=== PATIENT | male | born 1945 | race Asian ===

== ENCOUNTER 2019-02-25 19:39 | Inpatient (IN) | payer OTHER, BC ==
[~2019-02-25] VITALS: Ht 160 cm; Wt 82.1 kg
[~2019-02-25 19:39] MED LIST: ALLO300T2 PO; AMI200 PO; APIX2.5T PO; ASPI-1153 PO; HYD500 PO; METO50TA7 PO; PRAV40TA PO; SYN50 PO
[2019-02-25 20:00] VITALS: BP_SYST 142
--- NOTE | 2019-02-25 20:08 | NUR ---
Pt biba to bed 6 for evaluation
--- NOTE | 2019-02-25 20:14 | NUR ---
Pt brought in by ambulance. Pt awake, alert, oriented x4. Pt states that he was feeling weak tonight before dinner. Pt states that he was feeling weak and dizzy for approx 1 week. Pt states that he had mechanical fall today because of weakness. Pt denies trauma of any kind. Pt states that he has pain to the back of his arms, due to a numbness or cramping sensation. Pt denies KO. Pt states that he has had x1 episode of vomiting since falling/stumbling episode. Pt denies chest pain, shortness of brath, diarrhea, persistent nausea. pt resting in ed bed, no acute distress. VSS.
[2019-02-25 21:09] LABS: BILIRUBIN,URINE NEGATIVE (NEGATIVE); BLOOD, URINE 1+ (NEGATIVE); CLARITY/URINE CLEAR (CLEAR); COLOR,URINE YELLOW (YELLOW); GLUCOSE,URINE NEGATIVE (NEGATIVE); KETONES,URINE TRACE (NEGATIVE); LEUKOCYTE ESTERASE ,URINE NEGATIVE (NEGATIVE); NITRITE, URINE NEGATIVE (NEGATIVE); PROTEIN URINE 2+ (NEGATIVE)
[2019-02-25 21:13] LABS: BASOPHILS % (AUTO) 0.7 % (0.0-2.0); EOSINOPHILS % (AUTO) 0.2 % (0.0-4.0); HEMATOCRIT 36.4 % (36-54); HEMOGLOBIN 12.6 g/dL (14.0-18.0); LYMPHOCYTES # (AUTO) 0.5 K/uL (1.0-5.5); LYMPHOCYTES % (AUTO) 14.5 % (20.5-51.5); MEAN CORPUSCULAR HEMOGLOBIN 40 pg (27-31); MEAN CORPUSCULAR HGB CONC 35 % (32-36); MEAN CORPUSCULAR VOLUME 116 fL (79.0-98.0); MONOCYTES # (AUTO) 0.6 K/uL (0.0-1.0); MONOCYTES % (AUTO) 19.6 % (1.7-9.3); NEUTROPHILS # (AUTO) 2.1 K/uL (1.8-7.7); PLATELET COUNT (AUTO) 261 K/uL (130-430); RED BLOOD CELL COUNT(AUTO) 3.12 MIL/uL (4.2-6.2); WHITE BLOOD COUNT (AUTO) 3.2 K/uL (4.8-10.8)
[2019-02-25 21:19] LABS: INR 1.1 (0.80-1.20); PROTHROMBIN TIME 11.2 SECS (9.5-12.5)
[2019-02-25 21:21] LABS: ANION GAP 4 (5-15); BARBITURATE, URINE NEGATIVE (NEG <=200); BENZODIAZEPINE, URINE NEGATIVE (NEG <=150); CALCIUM 8.2 mg/dL (8.4-11.0); CANNABINOID, URINE NEGATIVE (NEG <=50); CHLORIDE 95 mmol/L (98-107); COCAINE, URINE NEGATIVE (NEG <=150); CREATININE 1.07 mg/dL (0.55-1.30); GLUCOSE 195 mg/dL (70-99); METHAMPHETAMINES SCREEN,URINE NEGATIVE (NEG <=500); OPIATE, URINE NEGATIVE (NEG <=100); PHENCYCLIDINE SCREEN,URINE NEGATIVE (NEG <=25); POTASSIUM 3.7 mmol/L (3.5-5.1); SODIUM SERUM 131 mmol/L (136-145); UR TRICYCLIC ANTIDEPRESSANTS NEGATIVE (NEG <=300); UREA NITROGEN, BLOOD 20 mg/dL (8-21); URINE AMPHETAMINE NEGATIVE (NEG <=500); URINE METHADONE NEGATIVE (NEG <=200); URINE OXYCODONE SCREEN NEGATIVE (NEG <=100); URINE PROPOXYPHENE SCREEN NEGATIVE (NEG <=300)
[2019-02-25 21:27] LABS: BACTERIA,URINE FEW /HPF (None Seen); MUCUS,URINE None Seen /LPF (None Seen); WBC,URINE 0-3 /HPF (0-3)
[2019-02-25 21:35] LABS: ALANINE AMINOTRANSFERASE 20 U/L (12-78); ALBUMIN 3.3 g/dL (3.4-4.8); ASPARTATE AMINOTRANSFERASE 21 U/L (10-37); FREE T4 (FREE THYROXINE) 1.1 ng/dl (0.8-1.5); THYROID STIMULATING HORMONE 8.73 uIu/mL (0.36-3.74); TOTAL BILIRUBIN 0.4 mg/dL (0.0-1.0)
[2019-02-25 21:39] LABS: ALCOHOL, BLOOD < 3 mg/dL (<10)
[2019-02-25] MEDS ORDERED: OSELTAMIVIR PHOSPHATE 75 MG CAPSULE PO ONE (21:45)
[2019-02-25] MEDS ORDERED: cefTRIAXone 1 GM IVPB PREMIX 50 ML IV ONE (21:45)
[2019-02-25] MEDS ORDERED: AZITHROMYCIN 250 MG TABLET PO ONE (21:45)
--- NOTE | 2019-02-25 22:12 | NUR ---
ER at bedside examining patient.
[2019-02-25] MEDS ORDERED: ACETAMINOPHEN 500 MG TABLET PO ONE (22:30)
[2019-02-25] MEDS ORDERED: NACL 0.9% 1,000 ML IV ONE (22:30)
[2019-02-25] MEDS ORDERED: GLU500 PO (23:13)
[2019-02-25] MEDS ORDERED: METO25TA3 PO (23:15)
[2019-02-25] MEDS ORDERED: VALS1TAB74 PO (23:17)
[2019-02-25] MEDS ORDERED: AMIO100T4 PO (23:19)
[2019-02-25] MEDS ORDERED: APIX5TAB4 PO (23:20)
--- NOTE | 2019-02-25 23:20 | NUR ---
Medication reconciliation completed with information provided by patient. Any prior medication reconciliation on file was reviewed and corrected.
--- NOTE | 2019-02-26 00:20 | NUR ---
Patient will be admitted to care of . Admitted to Tele unit. Will go to room 101A. Belongings list completed. Complete and up to date summary report printed. SBAR report to be given at bedside with opportunity for questions.
--- NOTE | 2019-02-26 00:39 | NUR ---
Bed Changed to 125B
[2019-02-26] MEDS ORDERED: LORazepam 2 MG/ML VIAL IVP PRN (00:45)
[2019-02-26] MEDS ORDERED: HYDROcodone/ACETAMIN 10-325 MG TAB PO PRN (00:45)
[2019-02-26] MEDS ORDERED: HYDROcodone/ACETAMIN 5-325 MG TAB (NORCO/ VICODIN) PO PRN (00:45)
[2019-02-26] MEDS ORDERED: ONDANSETRON HCL 4 MG/2 ML VIAL IVP PRN (00:45)
--- NOTE | 2019-02-26 00:48 | NUR ---
Transfer to Tele via ACLS protocol. Licensed nurse present. IV present no signs or symptoms of infiltration.
--- NOTE | 2019-02-26 00:55 | NUR ---
ADMISSION: The patient, IRISH CURRY, 73 y/o, M admitted by JON OLMOS MD, was given written information regarding hospital policies, unit procedures and contact persons. Valuables were checked and DOCUMENTED.
--- NOTE | 2019-02-26 01:00 | NUR ---
INITIAL NOTES PATIENT IS LAYING IN BED AND STABLE. NO S/S OF RESPIRATORY DISTRESS NOTED. PATIENT SUCCESSFULLY DEMONSTRATES USAGE OF CALL LIGHT AT THIS TIME. PATIENT'S FAMILY IS BY BEDSIDE. PLAN OF CARE DISCUSSED WITH PATIENT AT THIS TIME. PATIENT REFUSED BED ALARM, DESPITE EDUCATIONAL EFFORT. WILL CONTINUE TO EDUCATE. BED IS LOCKED, AND AT THE LOWEST POSITION. FALL, SAFETY, ASPIRATION, RESPIRATORY, AND DROPLET PRECAUTIONS WILL BE PLACED THROUGHOUT THE SHIFT.
[2019-02-26 01:19] VITALS: BP_SYST 123
--- NOTE | 2019-02-26 02:08 | NUR ---
PAGED PAGED DR. JON OLMOS FOR ORDERS, SPOKE WITH JEFFREY
--- NOTE | 2019-02-26 02:41 | NUR ---
CONSULTATION PAGED/CALLED Reason for Consultation: PNA Person Who was Notified: PATRIZIA Consulting Physician: FRANCIS WORTHINGTON Ordering Physician: JON HUMMEL FAXED FACE SHEET TO DR. COWAN'S OFFICE [phone]
--- NOTE | 2019-02-26 03:00 | NUR ---
ROUNDING PATIENT FAMILY IS STILL BY BEDSIDE. PATIENT IS STABLE AND SLEEPING. NO S/S OF RESPIRATORY DISTRESS NOTED. CALL LIGHT IN REACH. BED IS LOCKED AND AT THE LOWEST POSITION. WILL CONTINUE TO MONITOR.
[2019-02-26] MEDS: D5/0.45 NS 1,000 ML IV SCH ×3 (03:46→20:54)
--- NOTE | 2019-02-26 06:00 | NUR ---
CLOSING NOTES PATIENT IS LAYING IN BED AND STABLE. NO S/S OF RESPIRATORY DISTRESS NOTED. CALL LIGHT IN REACH. BED IS LOCKED AND AT THE LOWEST POSITION. FALL, ASPIRATION, DROPLET, RESPIRATORY, AND SAFETY PRECAUTIONS HAS BEEN PLACED THROUGHOUT THE SHIFT. WILL CONTINUE TO MONITOR UNTIL REPORT IS GIVEN TO AM NURSE BY BEDSIDE.
[2019-02-26] MEDS: LEVOTHYROXINE SODIUM 0.05 MG TABLET PO SCH (06:33)
[2019-02-26] MEDS: INSULIN REGULAR, HUMAN 100 UNITS/ML, 10 ML VIAL (humuLIN R) SUBCUT PRN ×3 (06:38→21:09)
--- NOTE | 2019-02-26 07:22 | NUR ---
INITIAL NOTE PT RESTING IN BED, NO ACUTE DISTRESS NOTED, BREATHING EVEN AND UNLABORED. IVF INFUSING WELL. CALL LIGHT WITHIN REACH, BED IN LOW AND LOCKED POSITION WITH BED ALARM ON.
[2019-02-26] MEDS ORDERED: FLU VACC TS2019(65UP)/MF59C/PF 45 MCG/0.5 ML SYRINGE I.M. PRN (07:45)
[2019-02-26 08:00] VITALS: BP_SYST 129
--- NOTE | 2019-02-26 09:30 | NUR ---
RN ROUNDS PT SITTING UP AT EDGE OF BED EATING BREAKFAST. MORNING MEDICATIONS ADMINISTERED. PT DENIES ANY SOB, OR DIZZINESS. AT BEDSIDE.
[2019-02-26] MEDS: HYDROXYUREA 500 MG CAPSULE (HYDREA) PO SCH (09:31)
[2019-02-26] MEDS: LOSARTAN POTASSIUM 50 MG TABLET (COZAAR) PO SCH (09:31)
[2019-02-26] MEDS: ASPIRIN 81 MG TABLET(ECOTRIN) PO SCH (09:32)
[2019-02-26] MEDS: ATORVASTATIN 10 MG TABLET PO SCH (09:32)
[2019-02-26] MEDS: HYDROCHLOROTHIAZIDE 12.5 MG CAPSULE (HCTZ) PO SCH (09:32)
[2019-02-26] MEDS: metFORMIN HCL 500 MG TABLET PO SCH ×2 (09:32→17:23)
[2019-02-26] MEDS: AMIODARONE HCL 200 MG TABLET PO SCH (09:33)
[2019-02-26] MEDS: ALLOPURINOL 300 MG TABLET (ZYLOPRIM) PO SCH (09:33)
[2019-02-26] MEDS: METOPROLOL SUCCINATE 25 MG TAB.SR.24H (TOPROL XL) PO SCH ×2 (09:33→21:02)
[2019-02-26] MEDS: OSELTAMIVIR PHOSPHATE 75 MG CAPSULE PO SCH ×2 (09:33→21:01)
[2019-02-26] MEDS: APIXABAN 2.5 MG TABLET PO SCH ×2 (09:34→21:04)
--- NOTE | 2019-02-26 11:30 | NUR ---
BSG 217 EDUCATED PT ON USES AND SIDE EFFECTS OF INSULIN COVERAGE. PT VERBALIZED UNDERSTANDING. 4 UNITS OF INSULIN ADMINISTERED. PT TOLERATED WELL. PT DENIES ANY SOB, DIZZ, OR COUGH.
[2019-02-26 12:00] VITALS: BP_SYST 142
--- NOTE | 2019-02-26 13:35 | NUR ---
RN ROUNDS PT RESTING IN BED, NO ACUTE DISTRESS NOTED, BREATHING EVEN AND UNLABORED. AT BEDSIDE.
[2019-02-26] MEDS: ACETAMINOPHEN 325 MG TABLET PO PRN (14:35)
--- NOTE | 2019-02-26 14:45 | NUR ---
Vaishali HUMMEL MD AT BEDSIDE EXAMINING PT.
--- NOTE | 2019-02-26 15:43 | NUR ---
RN ROUNDS PT SITTING UP IN BED. DENIES ANY SOB, DIZZINESS, OR FEVER. WILL CONTINUE TO MONITOR.
[2019-02-26 16:00] VITALS: BP_SYST 140
--- NOTE | 2019-02-26 17:40 | NUR ---
RN ROUNDS PT SITTING AT EDGE OF BED. DENIES ANY SOB, DIZZINESS, OR FEVER. SCHEDULED MEDICATIONS ADMINISTERED. FLU VACCINE ADMINISTERED. PT TOLERATED WELL.
[2019-02-26 18:02] VITALS: BP_SYST 140
--- NOTE | 2019-02-26 18:29 | NUR ---
CLOSING NOTE PT AWAKE, RESTING IN BED, DENIES ANY SOB, FEVER OR DIZZINESS. IV FLUIDS INFUSING WELL. CALL LIGHT WITHIN REACH, BED IN LOW AND LOCKED POSITION WITH BED ALARM ON. DROPLET PRECAUTIONS IN PLACE. ALL NEEDS ME THROUGHOUT SHIFT. WILL CONTINUE TO MONITOR UNTIL PT CARE IS ENDORSED TO WATER SERVICE DISPATCHER RN.
[2019-02-26 20:00] VITALS: BP_SYST 148
--- NOTE | 2019-02-26 20:00 | NUR ---
Late Entry due to patient care: Pt is fully AAO x4. No c/o pain or discomfort and no acute distress noted. Skin is warm and dry to touch. No signs or symptoms of hypoglycemia or hyperglycemia noted. IVF is infusing well in [facility]. Fall and safety precautions are in place.
[2019-02-26] MEDS: cefTRIAXone 1 GM IVPB PREMIX 50 ML IV SCH (21:03)
--- NOTE | 2019-02-26 21:09 | NUR ---
Accucheck 161 and 2 units Regular Insulin given SQ. Skin remains warm and dry to touch. Pt ate 1/2 [place] sandwich and drank 1 cup apple juice for HS snacks. IVF is infusing well in [facility]. Fall and safety precautions are in place.
--- NOTE | 2019-02-26 23:35 | NUR ---
CPAP connected to patient by RT. No respiratory distress noted. Fall and safety precautions are in place.
[2019-02-26] MEDS: AZITHROMYCIN 500 MG in NS 250 ML IV SCH (23:44)
[2019-02-27] VITALS: BP_SYST 145
--- NOTE | 2019-02-27 01:15 | NUR ---
Pt is sleeping comfortably in bed and tolerating CPAP's settings well. No respiratory distress noted. IVF is infusing well in LAC. Fall and safety precautions are in place.
--- NOTE | 2019-02-27 02:00 | NUR ---
Pt is sleeping without any distress noted. IVF is infusing well in [facility]. Fall and safety precautions are in place.
--- NOTE | 2019-02-27 04:00 | NUR ---
Pt is sleeping without any distress noted. IVF is infusing well in [facility]. Fall and safety precautions are in place.
--- NOTE | 2019-02-27 06:30 | NUR ---
PT IS AWAKE AND RESTING QUIETLY IN BED. ALL PT'S NEEDS WERE ATTENDED TO. WILL ENDORSE TO DAY SHIFT NURSE.
[2019-02-27 06:33] LABS: ANION GAP 7 (5-15); CALCIUM 7.6 mg/dL (8.4-11.0); CHLORIDE 100 mmol/L (98-107); CREATININE 0.99 mg/dL (0.55-1.30); GLUCOSE 151 mg/dL (70-99); POTASSIUM 3.6 mmol/L (3.5-5.1); SODIUM SERUM 135 mmol/L (136-145); UREA NITROGEN, BLOOD 15 mg/dL (8-21)
[2019-02-27] MEDS: LEVOTHYROXINE SODIUM 0.05 MG TABLET PO SCH (06:40)
[2019-02-27] MEDS: INSULIN REGULAR, HUMAN 100 UNITS/ML, 10 ML VIAL (humuLIN R) SUBCUT PRN ×4 (06:44→21:31)
[2019-02-27 06:57] LABS: BASOPHILS % (AUTO) 0.4 % (0.0-2.0); EOSINOPHILS % (AUTO) 0.4 % (0.0-4.0); HEMATOCRIT 33.9 % (36-54); HEMOGLOBIN 11.5 g/dL (14.0-18.0); LYMPHOCYTES # (AUTO) 1.4 K/uL (1.0-5.5); LYMPHOCYTES % (AUTO) 40.3 % (20.5-51.5); MEAN CORPUSCULAR HEMOGLOBIN 40 pg (27-31); MEAN CORPUSCULAR HGB CONC 34 % (32-36); MEAN CORPUSCULAR VOLUME 118 fL (79.0-98.0); MONOCYTES # (AUTO) 0.8 K/uL (0.0-1.0); MONOCYTES % (AUTO) 22.6 % (1.7-9.3); NEUTROPHILS # (AUTO) 1.3 K/uL (1.8-7.7); NEUTROPHILS % (AUTO) 36.3 % (40.0-70.0); PLATELET COUNT (AUTO) 209 K/uL (130-430); RED BLOOD CELL COUNT(AUTO) 2.87 MIL/uL (4.2-6.2); RED CELL DISTRIBUTION WIDTH 15.3 % (9.0-15.0); WHITE BLOOD COUNT (AUTO) 3.5 K/uL (4.8-10.8)
[2019-02-27 08:22] VITALS: BP_SYST 131
[2019-02-27 09:45] LABS: ERYTHROCYTE SEDIMENTATION RATE 57 MM/HR (0-15)
[2019-02-27] MEDS: ACETAMINOPHEN 325 MG TABLET PO PRN (09:54)
[2019-02-27] MEDS: ATORVASTATIN 10 MG TABLET PO SCH (09:56)
[2019-02-27] MEDS: ALLOPURINOL 300 MG TABLET (ZYLOPRIM) PO SCH (09:56)
[2019-02-27] MEDS: OSELTAMIVIR PHOSPHATE 75 MG CAPSULE PO SCH ×2 (09:56→21:27)
[2019-02-27] MEDS: HYDROCHLOROTHIAZIDE 12.5 MG CAPSULE (HCTZ) PO SCH (09:56)
[2019-02-27] MEDS: ASPIRIN 81 MG TABLET(ECOTRIN) PO SCH (09:56)
[2019-02-27] MEDS: metFORMIN HCL 500 MG TABLET PO SCH ×2 (09:56→17:40)
[2019-02-27] MEDS: HYDROXYUREA 500 MG CAPSULE (HYDREA) PO SCH (09:56)
[2019-02-27] MEDS: METOPROLOL SUCCINATE 25 MG TAB.SR.24H (TOPROL XL) PO SCH ×2 (10:12→21:28)
[2019-02-27] MEDS: APIXABAN 2.5 MG TABLET PO SCH ×2 (10:13→21:32)
[2019-02-27] MEDS: LOSARTAN POTASSIUM 50 MG TABLET (COZAAR) PO SCH (10:36)
[2019-02-27] MEDS: D5/0.45 NS 1,000 ML IV SCH ×2 (10:40→17:44)
[2019-02-27] MEDS ORDERED: GLUCOSE 15 GM GEL (in 37.5 GM TUBE) PO PRN (11:15)
[2019-02-27] MEDS ORDERED: D5W 1,000 ML IV PRN (11:15)
[2019-02-27] MEDS ORDERED: DEXTROSE 50%-WATER 50 ML DISP.SYRIN IVP PRN (11:15)
[2019-02-27 14:03] VITALS: BP_SYST 131
--- NOTE | 2019-02-27 14:08 | NUR ---
Encouraged patient to place bipap during nap as oxygen saturation on room air is 86%. Patient refused. Will monitor. Satnam Guillen RN
--- NOTE | 2019-02-27 19:30 | NUR ---
Pt was received lying in bed fully AAO x4. No c/o pain or discomfort and no acute distress noted. Skin is warm and dry to touch. No signs or symptoms of hypoglycemia or hyperglycemia noted. IVF of D5 1/2NS is infusing well in LAC at 100ml/hr without any signs of infiltration. Pt's is visiting at the bedside. Fall and safety precautions are in place.
[2019-02-27 20:00] VITALS: BP_SYST 142
--- NOTE | 2019-02-27 21:31 | NUR ---
Accucheck 185 and 2 units Regular Insulin given SQ. Skin remains warm and dry to touch. Pt declined HS snacks. Pt stated he has salad and fruit cup at bedside to eat later if he feels hungry. IVF is infusing well in [facility]. Fall and safety precautions are in place.
[2019-02-27] MEDS: cefTRIAXone 1 GM IVPB PREMIX 50 ML IV SCH (21:35)
[2019-02-27] MEDS: AZITHROMYCIN 500 MG in NS 250 ML IV SCH (22:42)
--- NOTE | 2019-02-27 23:20 | NUR ---
Pt was placed on BIPAP by RT. IVF is infusing well in [facility]. Fall and safety precautions are in place.
[2019-02-28] VITALS: BP_SYST 142
--- NOTE | 2019-02-28 01:00 | NUR ---
Pt is sleeping with BIPAP on. No respiratory distress noted. IVF is infusing well in LAC. Fall and safety precautions are in place.
[2019-02-28] MEDS: D5/0.45 NS 1,000 ML IV SCH ×2 (02:40→06:47)
--- NOTE | 2019-02-28 03:35 | NUR ---
Pt was seen by RT per pt's request. Pt having difficulty sleeping with the BIPAP on. Pt appears uncomfortable with the BIPAP's mask. Pt's is at the bedside. Fall and safety precautions are in place.
--- NOTE | 2019-02-28 04:14 | NUR ---
BIPAP's adjustment done by RT.
[2019-02-28] MEDS: LEVOTHYROXINE SODIUM 0.05 MG TABLET PO SCH (06:42)
--- NOTE | 2019-02-28 06:45 | NUR ---
PT IS AWAKE AND RESTING QUIETLY IN BED. IS AT THE BEDSIDE. ACCUCHECK 150 AND NO INSULIN COVERAGE NOTED. SKIN REMAINS WARM AND DRY TO TOUCH. ALL PT'S NEEDS WERE ATTENDED TO. WILL ENDORSE TO DAY SHIFT NURSE.
--- NOTE | 2019-02-28 07:20 | NUR ---
Opening Note received bedside SBAR report from shift stacker RN, patient resting in bed, respirations even and unlabored on room air, no acute distress noted, patient denies any pain, educated patient on use of call light and asked to call for assistance, patient verbalized understanding, call light in reach, educated patient on use of bed alarm for patient safety, patient refusing bed alarm, bed in low and locked position, isolation precautions in place.
[2019-02-28 08:00] VITALS: BP_SYST 155
[2019-02-28] MEDS: metFORMIN HCL 500 MG TABLET PO SCH ×2 (08:35→17:15)
[2019-02-28] MEDS: AMIODARONE HCL 200 MG TABLET PO SCH (08:35)
[2019-02-28] MEDS: LOSARTAN POTASSIUM 50 MG TABLET (COZAAR) PO SCH (08:35)
[2019-02-28] MEDS: HYDROXYUREA 500 MG CAPSULE (HYDREA) PO SCH (08:35)
[2019-02-28] MEDS: OSELTAMIVIR PHOSPHATE 75 MG CAPSULE PO SCH ×2 (08:36→20:26)
[2019-02-28] MEDS: ALLOPURINOL 300 MG TABLET (ZYLOPRIM) PO SCH (08:37)
[2019-02-28] MEDS: HYDROCHLOROTHIAZIDE 12.5 MG CAPSULE (HCTZ) PO SCH (08:37)
[2019-02-28] MEDS: APIXABAN 2.5 MG TABLET PO SCH ×2 (08:37→20:27)
[2019-02-28] MEDS: ATORVASTATIN 10 MG TABLET PO SCH (08:37)
[2019-02-28] MEDS: ASPIRIN 81 MG TABLET(ECOTRIN) PO SCH (08:38)
[2019-02-28] MEDS: METOPROLOL SUCCINATE 25 MG TAB.SR.24H (TOPROL XL) PO SCH ×2 (08:38→20:26)
--- NOTE | 2019-02-28 09:24 | NUR ---
RN Rounds patient resting in bed, respirations even and unlabored on room air, no acute distress noted.
--- NOTE | 2019-02-28 11:30 | NUR ---
RN Rounds patient resting in bed, respirations even and unlabored, patient denies any pain, IV fluid infusing well, no redness or swelling noted to IV site, patients at bedside.
[2019-02-28] MEDS: INSULIN REGULAR, HUMAN 100 UNITS/ML, 10 ML VIAL (humuLIN R) SUBCUT PRN ×3 (11:53→20:32)
[2019-02-28 12:37] VITALS: BP_SYST 152
--- NOTE | 2019-02-28 13:59 | NUR ---
RN Rounds patient resting in bed, respirations even and unlabored on room air, patient denies any pain, no acute distress noted, patients at bedside.
--- NOTE | 2019-02-28 15:27 | NUR ---
RN Rounds patient resting in bed, respirations even and unlabored on room air, patient denies any pain, no acute distress noted, patients at bedside.
--- NOTE | 2019-02-28 16:58 | NUR ---
Shipfitter Apprentice: met with pt. to conduct a DCPA. ANTHROPOLOGY DEPARTMENT CHAIR met with pt and . They assisted in answering questions. Pt. and stated pt needs a shower seat and a toilet seat as he is unsteady and fell in the garage prior to being hospitalized. He feels unsteady. Pt. denied feeling suicidal denied any MH issues. Pt stated he had a poor apetite, but his interjected stating it was due to his Dx of pneumonia. He is better and now wants to be D/C mary, but he stated he did not have time to speak to Dr. as he leaves the pts room just as soon as he arrives. ANTHROPOLOGY DEPARTMENT CHAIR suggested he have questions ready for the Dr. and writes them down. Then when the Dr. comes to examine him, just let him know that he wants to go over some questions. ANTHROPOLOGY DEPARTMENT CHAIR will remain available as needed.
--- NOTE | 2019-02-28 17:17 | NUR ---
Physician Rounds Dr. Molly Sabillon at bedside examining patient and speaking with patient and patients .
--- NOTE | 2019-02-28 17:36 | NUR ---
CONSULT CARDIOLOGY HYPERTENSION LATOYA WALKER [phone] S/W AJIT EXCHANGE
[2019-02-28 17:46] VITALS: BP_SYST 129
--- NOTE | 2019-02-28 19:20 | NUR ---
Closing Note bedside SBAR report given to receiving RN, patient resting in bed, respirations even and unlabored on room air, no acute distress noted, educated patient on use of call light and asked to call for assistance, patient verbalized understanding, call light in reach, educated patient on use of bed alarm for patient safety, patient refusing bed alarm, bed in low and locked position, care endorsed to factory lay out engineer RN.
--- NOTE | 2019-02-28 19:49 | NUR ---
Opening Note Received report from day shift RN, patient is sitting up in bed, no signs of acute distress at this time, patient is awake, A&Ox4, even and unlabored breathing on room air, IV to left AC forearm 18g is saline locked, no complaints of pain at this time, bed alarm not on, educated patient regarding bed alarm, patient verbalized understanding, patient verbalized he will use his call light for assistance out of bed, bed locked and in lowest position, two side rails up, safety and fall precautions in place, call light with patient, will continue plan of care.
[2019-02-28 20:00] VITALS: BP_SYST 126
[2019-02-28] MEDS: cefTRIAXone 1 GM IVPB PREMIX 50 ML IV SCH (20:21)
--- NOTE | 2019-02-28 20:32 | NUR ---
YE=343 Patient's blood sugar is 155, regular insulin 2 units SubQ indicated per sliding scale, educated patient on medication uses and potential side effects, patient verbalized understanding, administered medication per MD order, patient tolerated well, safety and fall precautions in place, bed locked and in lowest position, call light with patient, will continue to monitor.
[2019-02-28] MEDS: AZITHROMYCIN 500 MG in NS 250 ML IV SCH (22:01)
[2019-02-28] MEDS: NORMAL SALINE 5 ML DISP.SYRIN IVF SCH (22:02)
--- NOTE | 2019-02-28 22:02 | NUR ---
RN Rounds Patient is resting in bed, tolerating room air, no signs of acute distress at this time, IV site flushed, patent/benign, no complaints of pain at this time, safety and fall precautions in place, bed alarm not on, reeducated patient regarding bed alarm, patient verbalized understanding, patient verbalized he will use his call light for assistance, bed locked and in lowest position, , call light with patient, will continue to monitor.
[2019-03-01] VITALS: BP_SYST 142
--- NOTE | 2019-03-01 02:30 | NUR ---
RN Rounds Patient is resting in bed, tolerating CPAP machine 15% FiO2 21%, family at bedside, no signs of acute distress, IV is saline locked, safety and fall precautions in place, bed locked and in lowest position, two side rails up, call light with patient, will continue to monitor.
--- NOTE | 2019-03-01 04:02 | NUR ---
RN Rounds Patient is resting in bed, eyes closed, patient is tolerating CPAP machine 15%, FiO2 21%, family at bedside, no signs of acute distress at this time, IV is saline locked, safety and fall precautions in place, droplet isolation precautions in place, bed locked and in lowest position, two side rails up, call light with patient, will continue to monitor.
[2019-03-01] MEDS: NORMAL SALINE 5 ML DISP.SYRIN IVF SCH ×3 (06:15→21:43)
[2019-03-01] MEDS: LEVOTHYROXINE SODIUM 0.05 MG TABLET PO SCH (06:15)
--- NOTE | 2019-03-01 06:15 | NUR ---
RN Rounds Patient resting in bed, tolerating CPAP, family member at bedside, no signs of acute distress, assessed blood sugar, no coverage needed per sliding scale, IV site is saline locked, patent/benign, safety and fall precautions in place, droplet isolation precaution in place, bed locked and in lowest position, bed alarm not on, reeducated patient, patient verbalized understanding, two side rails up, call light with patient, will continue to monitor.
[2019-03-01 06:17] LABS: HEMATOCRIT 35.5 % (36-54); MEAN CORPUSCULAR HEMOGLOBIN 40 pg (27-31); MEAN CORPUSCULAR HGB CONC 34 % (32-36); MEAN CORPUSCULAR VOLUME 119 fL (79.0-98.0); PLATELET COUNT (AUTO) 211 K/uL (130-430); RED BLOOD CELL COUNT(AUTO) 2.99 MIL/uL (4.2-6.2); RED CELL DISTRIBUTION WIDTH 15.4 % (9.0-15.0); WHITE BLOOD COUNT (AUTO) 3.1 K/uL (4.8-10.8)
[2019-03-01 06:26] LABS: ANION GAP 3 (5-15); CALCIUM 8.1 mg/dL (8.4-11.0); CHLORIDE 99 mmol/L (98-107); CREATININE 0.93 mg/dL (0.55-1.30); GLUCOSE 112 mg/dL (70-99); POTASSIUM 3.7 mmol/L (3.5-5.1); SODIUM SERUM 138 mmol/L (136-145); UREA NITROGEN, BLOOD 12 mg/dL (8-21)
--- NOTE | 2019-03-01 06:30 | NUR ---
PT IS AWAKE AND RESTING QUIETLY IN BED. ALL PT'S NEEDS WERE ATTENDED TO. WILL ENDORSE TO DAY SHIFT NURSE. Addendum: 03/02/19 at 2116 by Ratna Galicia RN WRONG ENTRY. PLEASE DISREGARD.
--- NOTE | 2019-03-01 06:36 | NUR ---
Closing Note Patient is resting in bed, no signs of acute distress at this time, family member at bedside, tolerating CPAP 15%, FiO2 21%, IV to left AC forearm 18g is saline locked, patent/benign, no complaints of pain at this time, bed alarm not on, reeducated patient regarding bed alarm, patient verbalized understanding, bed locked and in lowest position, two side rails up, safety and fall precautions in place, droplet isolation precautions in place, call light with patient, will endorse care to dayshift RN.
[2019-03-01 07:30] LABS: C-REACTIVE PROTEIN QUANT < 0.2 mg/dL (0-0.5)
--- NOTE | 2019-03-01 07:35 | NUR ---
Opening Note received bedside SBAR report from family assistant RN, patient resting in bed, respirations even and unlabored, no acute distress noted, patients at bedside, educated patient on use of call light and asked to call for assistance, patient verbalized understanding, call light in reach, educated patient on use of bed alarm for patient safety, patient refusing bed alarm, bed in low and locked position, isolation precautions in place.
[2019-03-01 08:00] VITALS: BP_SYST 138
[2019-03-01 08:36] LABS: ERYTHROCYTE SEDIMENTATION RATE 62 MM/HR (0-15)
[2019-03-01] MEDS: metFORMIN HCL 500 MG TABLET PO SCH ×2 (09:08→17:01)
[2019-03-01] MEDS: APIXABAN 2.5 MG TABLET PO SCH ×2 (09:09→21:37)
[2019-03-01] MEDS: ATORVASTATIN 10 MG TABLET PO SCH (09:11)
[2019-03-01] MEDS: OSELTAMIVIR PHOSPHATE 75 MG CAPSULE PO SCH ×2 (09:11→21:36)
[2019-03-01] MEDS: HYDROXYUREA 500 MG CAPSULE (HYDREA) PO SCH (09:11)
[2019-03-01] MEDS: ASPIRIN 81 MG TABLET(ECOTRIN) PO SCH (09:12)
[2019-03-01] MEDS: ALLOPURINOL 300 MG TABLET (ZYLOPRIM) PO SCH (09:12)
[2019-03-01] MEDS: METOPROLOL SUCCINATE 25 MG TAB.SR.24H (TOPROL XL) PO SCH ×2 (09:17→21:37)
[2019-03-01] MEDS: HYDROCHLOROTHIAZIDE 12.5 MG CAPSULE (HCTZ) PO SCH (09:17)
[2019-03-01] MEDS: LOSARTAN POTASSIUM 50 MG TABLET (COZAAR) PO SCH (09:18)
--- NOTE | 2019-03-01 09:41 | NUR ---
RN Rounds patient sitting up in bed eating breakfast, tolerating well, patient denies any pain or nausea, patients at bedside.
[2019-03-01 10:55] LABS: BASOPHILS % (MANUAL) 0 % (0-2); EOSINOPHILS % (MANUAL) 2 % (0-7); LYMPHOCYTES % (MANUAL) 56 % (20-46); MONOCYTES % (MANUAL) 23 % (0-11)
[2019-03-01] MEDS: INSULIN REGULAR, HUMAN 100 UNITS/ML, 10 ML VIAL (humuLIN R) SUBCUT PRN ×3 (11:46→22:30)
--- NOTE | 2019-03-01 11:54 | NUR ---
RN Rounds patient resting in bed, patient denies any pain, no acute distress noted, patients at bedside.
[2019-03-01 13:31] VITALS: BP_SYST 120
--- NOTE | 2019-03-01 14:10 | NUR ---
RN Rounds patient resting in bed, respirations even and unlabored on room air, no acute distress noted, patient denies any pain, patients at bedside.
--- NOTE | 2019-03-01 15:18 | NUR ---
DC PLANNING CALLED SPOKE WITH DR JON OLMOS TO DISCUSS DC PLAN. PER DR OLMOS AWAITING CARDIO CONSULT FOR HTN AND PATIENT AND CM CAN ANTICIPATE DC HOME TOMORROW 5 DAYS OF ISOLATION WILL BE REACHED.
--- NOTE | 2019-03-01 16:55 | NUR ---
RN Rounds patient resting in bed, respirations even and unlabored on room air, patient denies any pain at this time, patients at bedside.
[2019-03-01 17:16] VITALS: BP_SYST 110
--- NOTE | 2019-03-01 19:15 | NUR ---
Closing Note bedside SBAR report given to receiving RN, patient resting in bed, respirations even and unlabored on room air, no acute distress noted, educated patient on use of call light and asked to call for assistance, patient verbalized understanding, call light in reach, educated patient on use of bed alarm for patient safety, patient refusing bed alarm, bed in low and locked position, care endorsed to devulcanizer operator RN.
[2019-03-01 20:00] VITALS: BP_SYST 134
[2019-03-01] MEDS: cefTRIAXone 1 GM IVPB PREMIX 50 ML IV SCH (21:38)
[2019-03-01] MEDS: AZITHROMYCIN 500 MG in NS 250 ML IV SCH (21:42)
[2019-03-02] VITALS: BP_SYST 143
--- NOTE | 2019-03-02 00:31 | NUR ---
FOLLOWED UP CONSULT: I CALLED DR. CAMRYN BLANCO TO FOLLOWED UP CONSULT I SPOKE WITH MIC ZUNIGA CONSULT WAS CALLED ON 02/28/2019 UNTIL NOW HAS NOT COME TO SEE PATIENT YET
[2019-03-02 04:00] VITALS: BP_SYST 139
[2019-03-02] MEDS: NORMAL SALINE 5 ML DISP.SYRIN IVF SCH ×3 (05:45→21:16)
[2019-03-02] MEDS: LEVOTHYROXINE SODIUM 0.05 MG TABLET PO SCH (06:29)
[2019-03-02 08:00] VITALS: BP_SYST 123
[2019-03-02 09:18] LABS: ANION GAP 0 (5-15); CALCIUM 8.6 mg/dL (8.4-11.0); CHLORIDE 98 mmol/L (98-107); GLUCOSE 117 mg/dL (70-99); POTASSIUM 3.7 mmol/L (3.5-5.1); SODIUM SERUM 133 mmol/L (136-145); UREA NITROGEN, BLOOD 15 mg/dL (8-21)
[2019-03-02 09:23] LABS: C-REACTIVE PROTEIN QUANT < 0.2 mg/dL (0-0.5)
[2019-03-02 10:05] LABS: ERYTHROCYTE SEDIMENTATION RATE 63 MM/HR (0-15)
[2019-03-02 10:55] LABS: HEMATOCRIT 38.4 % (36-54); RED BLOOD CELL COUNT(AUTO) 3.26 MIL/uL (4.2-6.2)
[2019-03-02 10:56] LABS: BASOPHILS % (AUTO) 0.5 % (0.0-2.0); LYMPHOCYTES % (AUTO) 60.5 % (20.5-51.5); MEAN CORPUSCULAR HEMOGLOBIN 40 pg (27-31); MEAN CORPUSCULAR HGB CONC 34 % (32-36); MEAN CORPUSCULAR VOLUME 118 fL (79.0-98.0); MONOCYTES % (AUTO) 19.6 % (1.7-9.3); NEUTROPHILS # (AUTO) 0.5 K/uL (1.8-7.7); NEUTROPHILS % (AUTO) 18.4 % (40.0-70.0); PLATELET COUNT (AUTO) 224 K/uL (130-430)
[2019-03-02 10:57] LABS: LYMPHOCYTES # (AUTO) 1.6 K/uL (1.0-5.5); MONOCYTES # (AUTO) 0.5 K/uL (0.0-1.0)
[2019-03-02 10:58] LABS: WHITE BLOOD COUNT (AUTO) 2.6 K/uL (4.8-10.8)
[2019-03-02] MEDS: ASPIRIN 81 MG TABLET(ECOTRIN) PO SCH (12:33)
[2019-03-02] MEDS: metFORMIN HCL 500 MG TABLET PO SCH ×2 (12:33→17:37)
[2019-03-02] MEDS: ATORVASTATIN 10 MG TABLET PO SCH (12:34)
[2019-03-02] MEDS: OSELTAMIVIR PHOSPHATE 75 MG CAPSULE PO SCH ×2 (12:34→21:00)
[2019-03-02] MEDS: METOPROLOL SUCCINATE 25 MG TAB.SR.24H (TOPROL XL) PO SCH ×2 (12:34→21:01)
[2019-03-02] MEDS: HYDROXYUREA 500 MG CAPSULE (HYDREA) PO SCH (12:34)
[2019-03-02] MEDS: HYDROCHLOROTHIAZIDE 12.5 MG CAPSULE (HCTZ) PO SCH (12:35)
[2019-03-02] MEDS: ALLOPURINOL 300 MG TABLET (ZYLOPRIM) PO SCH (12:36)
[2019-03-02] MEDS: LOSARTAN POTASSIUM 50 MG TABLET (COZAAR) PO SCH (12:37)
[2019-03-02] MEDS: APIXABAN 2.5 MG TABLET PO SCH ×2 (12:39→20:59)
[2019-03-02] MEDS: AMIODARONE HCL 200 MG TABLET PO SCH (12:44)
[2019-03-02] MEDS: INSULIN REGULAR, HUMAN 100 UNITS/ML, 10 ML VIAL (humuLIN R) SUBCUT PRN ×2 (13:06→21:35)
--- NOTE | 2019-03-02 13:26 | NUR ---
Dietitian Recommendations *Recommend [facility] Cardiac diet. Please see Nutritional Assessment for details. RUSH, BRANNON
[2019-03-02 20:00] VITALS: BP_SYST 133
[2019-03-02] MEDS: cefTRIAXone 1 GM IVPB PREMIX 50 ML IV SCH (20:58)
[2019-03-02] MEDS: AZITHROMYCIN 500 MG in NS 250 ML IV SCH (21:02)
[2019-03-03] VITALS: BP_SYST 133
--- NOTE | 2019-03-03 00:30 | NUR ---
ASLEEP.VITAL SIGNS NOT TAKEN.
--- NOTE | 2019-03-03 01:15 | NUR ---
DR PIÑA,FRANCIS IN AND ASKED PHOENIXUY THE MESSAGE LEFT FOR HIM FOR THE ATRIAL FIB AND HPN. NOT ME WHO CALLED HIM BUT SAID THAT THE PATIENT IS FOR DISCHARGE IN AM IN HIS CARE, WILL FOLLOW UP WITH THE ONE WHO CALLED FOR ATRIAL FIB AND HYPERTENSION IN AM.
[2019-03-03] MEDS: NORMAL SALINE 5 ML DISP.SYRIN IVF SCH ×2 (05:30→15:51)
[2019-03-03 06:34] LABS: BASOPHILS % (AUTO) 0.5 % (0.0-2.0); EOSINOPHILS % (AUTO) 0.9 % (0.0-4.0); HEMATOCRIT 35.9 % (36-54); HEMOGLOBIN 12.1 g/dL (14.0-18.0); LYMPHOCYTES # (AUTO) 1.8 K/uL (1.0-5.5); LYMPHOCYTES % (AUTO) 57.2 % (20.5-51.5); MEAN CORPUSCULAR HEMOGLOBIN 40 pg (27-31); MEAN CORPUSCULAR HGB CONC 34 % (32-36); MEAN CORPUSCULAR VOLUME 119 fL (79.0-98.0); MONOCYTES # (AUTO) 0.6 K/uL (0.0-1.0); MONOCYTES % (AUTO) 18.9 % (1.7-9.3); PLATELET COUNT (AUTO) 225 K/uL (130-430); RED BLOOD CELL COUNT(AUTO) 3.03 MIL/uL (4.2-6.2); RED CELL DISTRIBUTION WIDTH 16.1 % (9.0-15.0); WHITE BLOOD COUNT (AUTO) 3.2 K/uL (4.8-10.8)
[2019-03-03] MEDS: LEVOTHYROXINE SODIUM 0.05 MG TABLET PO SCH (06:53)
--- NOTE | 2019-03-03 07:52 | NUR ---
report given to the day shift rn that the cardiology consult has not seen the patient and the atrial fibrilllation is still uncontrolled intermittently
[2019-03-03 07:54] LABS: NEUTROPHILS % (AUTO) 22.5 % (40.0-70.0)
[2019-03-03 07:55] LABS: NEUTROPHILS # (AUTO) 0.7 K/uL (1.8-7.7)
[2019-03-03] MEDS: LOSARTAN POTASSIUM 50 MG TABLET (COZAAR) PO SCH (08:09)
[2019-03-03] MEDS: ATORVASTATIN 10 MG TABLET PO SCH (08:10)
[2019-03-03] MEDS: metFORMIN HCL 500 MG TABLET PO SCH ×2 (08:10→17:15)
[2019-03-03] MEDS: HYDROCHLOROTHIAZIDE 12.5 MG CAPSULE (HCTZ) PO SCH (08:10)
[2019-03-03] MEDS: HYDROXYUREA 500 MG CAPSULE (HYDREA) PO SCH (08:10)
[2019-03-03] MEDS: ASPIRIN 81 MG TABLET(ECOTRIN) PO SCH (08:10)
--- NOTE | 2019-03-03 08:10 | NUR ---
Education Patient alert/oriented x4 , educate patient on hydration , compliant with medication , proper handwashing verbalized understanding.
[2019-03-03] MEDS: ALLOPURINOL 300 MG TABLET (ZYLOPRIM) PO SCH (08:11)
[2019-03-03] MEDS: METOPROLOL SUCCINATE 25 MG TAB.SR.24H (TOPROL XL) PO SCH (08:11)
[2019-03-03] MEDS: APIXABAN 2.5 MG TABLET PO SCH (08:12)
[2019-03-03 08:15] VITALS: BP_SYST 134
[2019-03-03 08:47] LABS: ANION GAP 1 (5-15); CALCIUM 8.5 mg/dL (8.4-11.0); CHLORIDE 97 mmol/L (98-107); CREATININE 0.94 mg/dL (0.55-1.30); GLUCOSE 121 mg/dL (70-99); POTASSIUM 3.9 mmol/L (3.5-5.1); SODIUM SERUM 131 mmol/L (136-145); UREA NITROGEN, BLOOD 16 mg/dL (8-21)
[2019-03-03 08:48] LABS: C-REACTIVE PROTEIN QUANT < 0.2 mg/dL (0-0.5)
[2019-03-03 10:07] LABS: ERYTHROCYTE SEDIMENTATION RATE 57 MM/HR (0-15)
[2019-03-03 10:41] VITALS: BP_SYST 127
[2019-03-03] MEDS: INSULIN REGULAR, HUMAN 100 UNITS/ML, 10 ML VIAL (humuLIN R) SUBCUT PRN (11:32)
--- NOTE | 2019-03-03 13:56 | NUR ---
Patient anxious to go home, ambulate with steady gait no sign of acute distress , heart rate 90/min , needs attended.
[2019-03-03 15:51] VITALS: BP_SYST 153
[2019-03-03 16:06] VITALS: BP_SYST 153
[2019-03-03] MEDS ORDERED: LEVO500T89 PO (18:11)
--- NOTE | 2019-03-03 18:30 | NUR ---
D/C Patient Patient given medication reconciliation form and D/C instructions. Exit Care provided. Patient verbalized understanding. MD discussed with patient the results and treatment provided. Ambulatory with steady gait for discharge to home. Patient in stable condition, ID band removed. IV catheter removed, intact and dressing applied, no active bleeding. Rx of LEVAQUIN given. All belongings sent with patient.
--- NOTE | 2019-03-03 19:12 | NUR ---
Discharged home ambulatory accompanied by the with all the belongings taken.
== END 2019-03-03 19:12 | disposition home or self-care (01) | DRG 194 ==
LOC: SED 19:39 → STU 23:40
PROVIDERS: ADMIT Preventive Medicine Preventive Medicine/Occupational Environmental Medicine; ATTEND Preventive Medicine Preventive Medicine/Occupational Environmental Medicine
PROC: 5A09357 Assistance with Respiratory Ventilation, Less than 24 Consecutive Hours, Continuous Positive Airway Pressure (ICD-10-PCS; principal; 2019-02-26)
PROC: 5A09357 Assistance with Respiratory Ventilation, Less than 24 Consecutive Hours, Continuous Positive Airway Pressure (ICD-10-PCS; 2019-02-27)
PROC: 5A09357 Assistance with Respiratory Ventilation, Less than 24 Consecutive Hours, Continuous Positive Airway Pressure (ICD-10-PCS; 2019-02-28)
PROC: 5A09457 Assistance with Respiratory Ventilation, 24-96 Consecutive Hours, Continuous Positive Airway Pressure (ICD-10-PCS; 2019-03-02)
DX: J10.00 Influenza due to other identified influenza virus with unspecified type of pneumonia (principal); E87.1 Hypo-osmolality and hyponatremia; I48.20 Chronic atrial fibrillation, unspecified; D45 Polycythemia vera; D64.9 Anemia, unspecified; E03.9 Hypothyroidism, unspecified; E11.65 Type 2 diabetes mellitus with hyperglycemia; E78.00 Pure hypercholesterolemia, unspecified; E83.51 Hypocalcemia; E83.52 Hypercalcemia; G47.33 Obstructive sleep apnea (adult) (pediatric); I10 Essential (primary) hypertension; I48.91 Unspecified atrial fibrillation; Z79.82 Long term (current) use of aspirin; Z79.899 Other long term (current) drug therapy; D75.1 Secondary polycythemia
CPT/HCPCS: 36415; 71045; 80048; 80053; 80307; 81000-TC; 82550-TC; 82962; 83605; 83880; 84439; 84443-TC; 84484; 85007; 85025; 85027; 85610-TC; 85651-TC; 85730-TC; 86140; 86710; 87040-TC; 87086; 93005; 94660; 94760; 96361; 96365; 99285; G0378; G0482; G9035; J0456; J0696; J1815; J7030; J7050; Q0144